=== PATIENT | male | born 1945 | race Caucasian/White ===

== ENCOUNTER → 2021-03-02 | Day surgery (SDC) | payer MEDICARE, BC ==
[~2021-03-02] MED LIST: Lactated Ringers 1,000 ML IV ONE
[2021-03-02] MEDS: Lactated Ringers 1,000 ML IV ONE (06:47)
--- NOTE | 2021-03-02 10:50 | OR ---
DATE OF OPERATION: 03/02/2021 PREOPERATIVE DIAGNOSIS: 1. FAMILY HISTORY OF COLON CARCINOMA. 2. HISTORY OF POLYPS. POSTOPERATIVE DIAGNOSIS: 1. FAMILY HISTORY OF COLON CARCINOMA. 2. HISTORY OF POLYPS. SURGEON: Ronny Colón MD PROCEDURE: FULL-LENGTH DIAGNOSTIC COLONOSCOPY WITH SNARE POLYPECTOMY X2. ANESTHESIA: MAC. COMPLICATIONS: None. SPECIMEN: Tubular adenomas x2, each less than 0.5 cm. FINDINGS: 1. Full-length colonoscopy. 2. Moderate sigmoid diverticulosis. 3. Tubular adenomas x2. RECOMMENDATIONS: The patient can consider followup colonoscopy in 5 years if he desires. INDICATIONS: The patient has known history of colon cancer in the family and he has had prior polyps removed. We recommend a 5-year followup scope. DESCRIPTION OF PROCEDURE: The patient was prepped and draped, placed in the left lateral decubitus position. A lubricated Olympus colonoscope was inserted and easily advanced to the cecum. Direct visualization of the ileocecal valve and appendiceal orifice was accomplished. The bowel prep was excellent. Upon withdrawal of the scope, the cecum and ascending colon appeared for the most part benign. In the most distal portion of the ascending colon, the patient had a small tubular adenoma of approximately 3 mm to 4 mm. It was snared and suctioned into polyp trap #1. The rest of the transverse colon was unremarkable. On the descending colon side of the splenic flexure, the patient had a flat more sessile polyp very linear along the haustral fold, hard to get out completely by itself with a snare. We did remove the majority of it with a snare, and then 2 separate forceps biopsies to remove the rest. This was suctioned into polyp trap #2. Rest of the descending colon was unremarkable. The patient does have moderate diverticular disease throughout the sigmoid and rectosigmoid junction but no other polyps were found, masses, ulceration, or lesions. The rectal vault appeared benign. Retroflexion showed prominent internal hemorrhoids, otherwise, benign. Air was suctioned. Scope removed without complication. BONNIE/ANA /[id number]
== END ==
LOC: CC.SDS 06:37
PROVIDERS: ATTEND Family Medicine
DX: Z12.11 Encounter for screening for malignant neoplasm of colon (principal); D12.2 Benign neoplasm of ascending colon; D12.3 Benign neoplasm of transverse colon; K57.30 Diverticulosis of large intestine without perforation or abscess without bleeding; I10 Essential (primary) hypertension; C61 Malignant neoplasm of prostate; Z86.010 Personal history of colon polyps; Z79.899 Other long term (current) drug therapy; Z80.0 Family history of malignant neoplasm of digestive organs; Z98.890 Other specified postprocedural states
CPT/HCPCS: 45385; J7120